=== PATIENT | female | born 1985 | race Caucasian/White ===

== ENCOUNTER 2018-05-07 12:19 | Emergency (ER) | payer BC, OTHER ==
[2018-05-07 12:36] VITALS: TEMP 98.7; BMI 23.5
[2018-05-07] MEDS ORDERED: SODIUM CHLORIDE 0.9% 500 ML INFUS.BAG IV ONE (14:01)
[2018-05-07 14:30] LABS: BASO % 0.7 % (0-2.0); EOS % 0.5 % (0-4.5); HEMOGLOBIN 12.5 GM/dL (10.7-15.3); LYMPH % 16.5 % (8-40); MCH 30.2 pg (25.7-33.7); MCHC 35.7 g/dl (32.0-36.0); MEAN CELL VOLUME 84.6 fl (80-96); MEAN PLT VOLUME 9.6 fl (7.5-11.1); MONO % 6.1 % (3.8-10.2); NEUT % 76.2 % (42.8-82.8); PLATELET COUNT 177 K/MM3 (134-434); RBC 4.13 M/mm3 (3.60-5.2); RDW 12.3 % (11.6-15.6); WHITE BLOOD COUNT 7.7 K/mm3 (4.0-10.0)
--- NOTE | 2018-05-07 14:41 | PDOC ---
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 Patient states she took a shower this morning when she suddenly felt lightheaded and like she was going to faint and sat down to the ground. Patient denies head/body trauma or loss of consciousness. Patient reports she has been eating less than usual secondary to her . Patient states she vomited approximately 4 times today, all nonbloody and nonbilious. Patient has been nauseous over the past 2 weeks for which she has been taking B6 and bruce root extract with minimal relief. Patient will be seeing Dr. Mahoney, RATE MANAGER, next week for an ultrasound. Patient is on prenatals. LMP 02/2018 Patient denies fever, chills, vaginal bleeding, back pain, cp, sob, or urinary symptoms. Allergies: NKDA Surgeries: None reported Social: No reported alcohol, drug or cigarette use. ROS General Medical GENERAL/CONSTITUTIONAL: No fever or chills. no sweats. (+) Weakness. HEAD, EYES, EARS, NOSE AND THROAT: No change in vision or hearing. No ear pain or discharge. No sore throat or mouth pain. No difficulty swallowing. No congestion. CARDIOVASCULAR: No chest pain or palpitations, syncope or edema. RESPIRATORY: No SOB, cough, wheezing, or hemoptysis. GASTROINTESTINAL (+) Nausea/vomiting. No diarrhea or constipation. No abdominal pain. GENITOURINARY: No hematuria, dysuria, frequency, urgency or other changes. No vaginal bleeding. MUSCULOSKELETAL: No joint or muscle swelling or pain. No neck or back pain. SKIN: No rash or changes in skin color or lesions. NEUROLOGIC: No headache, vertigo, loss of consciousness, or change in strength/ sensation. No gait instability. (+) Lightheadedness. HEMATOLOGIC/LYMPHATIC: No anemia, easy bruising/bleeding, or history of blood clots. ALLERGIC/IMMUNOLOGIC: No allergies All other systems reviewed and negative, or as documented in HPI. Physical exam (general medical) General: Well appearing, awake and alert, NAD. HEENT: NCAT, PERRL, EOMI, clear conjunctiva, anicteric, moist mucus membranes, clear oropharynx, no oral lesions.. Neck: neck supple, FROM Resp: CTAB, normal and even respirations, no respiratory distress CVS: RRR, no murmurs, 2+ peripheral pulses throughout, no peripheral edema Abdomen: soft, NTND, no peritoneal signs. No CVAT. Back: nontender, normal inspection and ROM MSK: no edema, AMARAL x4, ROM intact. No clubbing or cyanosis. normal bulk and tone. Extremities: no calf tenderness Neuro: alert Skin: warm and well perfused, cap refill <2 sec, normal color <Monse Baca - Last Filed: 05/07/18 15:19> - General History Source: Patient Exam Limitations: No Limitations <Carito Salgado - Last Filed: 05/09/18 16:39> - General Chief Complaint: Syncope/Near Syncope Stated Complaint: 8WKS Time Seen by Provider: 05/07/18 13:56 Past History <Monse Baca - Last Filed: 05/07/18 15:19> - Past Medical History COPD: No - Suicide/Smoking/Psychosocial Hx Smoking History: Never smoked <Carito Salgado - Last Filed: 05/09/18 16:39> - Past Medical History Allergies/Adverse Reactions: Allergies Allergy/AdvReac Type Severity Reaction Status Date / Time No Known Allergies Allergy Verified 05/07/18 12:33 Home Medications: Ambulatory Orders Aspirin [Aspirin EC] 81 mg PO DAILY 05/07/18 Metoclopramide HCl [Reglan -] 10 mg PO TID PRN #9 tablet 05/07/18 Vit 108/Iron/Folic AC [ One Tablet] 1 each PO DAILY 05/07/18 *Physical Exam - Vital Signs Last Vital Signs Temp Pulse Resp BP Pulse Ox 98.7 F 79 18 99/64 100 05/07/18 12:33 05/07/18 12:33 05/07/18 12:33 05/07/18 12:33 05/07/18 12:33 <Monse Baca - Last Filed: 05/07/18 15:19> - Vital Signs Last Vital Signs Temp Pulse Resp BP Pulse Ox 98.7 F 79 18 99/64 100 05/07/18 12:33 05/07/18 12:33 05/07/18 12:33 05/07/18 12:33 05/07/18 12:33 <Carito Salgado - Last Filed: 05/09/18 16:39> Moderate Sedation - Procedure Monitoring Vital Signs: Procedure Monitoring Vital Signs Temperature 98.7 F 05/07/18 12:33 Pulse Rate 79 05/07/18 12:33 Respiratory Rate 18 05/07/18 12:33 Blood Pressure 99/64 05/07/18 12:33 O2 Sat by Pulse Oximetry (%) 100 05/07/18 12:33 <Monse Baca - Last Filed: 05/07/18 15:19> - Procedure Monitoring Vital Signs: Procedure Monitoring Vital Signs Temperature 98.7 F 05/07/18 12:33 Pulse Rate 79 05/07/18 12:33 Respiratory Rate 18 05/07/18 12:33 Blood Pressure 99/64 05/07/18 12:33 O2 Sat by Pulse Oximetry (%) 100 05/07/18 12:33 <Carito Salgado - Last Filed: 05/09/18 16:39> Heart Score/ECG Review - ECG Impressions Normal ECG: Yes Comment:: 05/07/18 15:39 EKG normal sinus rhythm, no interval abnormalities, narrow QRS, ST and T wave segments and morphology normal. Nonspecific T wave abnormalities <Carito Salgado - Last Filed: 05/09/18 16:39> ED Treatment Course - LABORATORY CBC & Chemistry Diagram: 05/07/18 14:19 05/07/18 14:19 - ADDITIONAL ORDERS Additional order review: Laboratory Results 05/07/18 14:48 Urine Color Dkyellow Urine Appearance Clear Urine pH 5.0 Ur Specific [place] 1.027 Urine Protein 1+ H Urine Glucose (UA) Negative Urine Ketones 2+ H Urine Blood 1+ H Urine Nitrite Negative Urine Bilirubin Negative Urine Urobilinogen Negative Ur Leukocyte Esterase Trace 05/07/18 14:19 RBC 4.13 MCV 84.6 MCHC 35.7 RDW 12.3 MPV 9.6 Neutrophils % 76.2 Lymphocytes % 16.5 Monocytes % 6.1 Eosinophils % 0.5 Basophils % 0.7 - Medications Given in the ED: ED Medications Discontinued Medications Generic Name Dose Route Start Last Admin Trade Name Freq PRN Reason Stop Dose Admin Sodium Chloride 1,000 ml 05/07/18 14:01 05/07/18 14:26 Normal Saline - IV 05/07/18 14:02 1,000 ml ONCE ONE Administration <Monse Baca - Last Filed: 05/07/18 15:19> - LABORATORY CBC & Chemistry Diagram: 05/07/18 14:19 05/07/18 14:19 - ADDITIONAL ORDERS Additional order review: 05/07/18 14:19 RBC 4.13 MCV 84.6 MCHC 35.7 RDW 12.3 MPV 9.6 Neutrophils % 76.2 Lymphocytes % 16.5 Monocytes % 6.1 Eosinophils % 0.5 Basophils % 0.7 - Medications Given in the ED: ED Medications Discontinued Medications Generic Name Dose Route Start Last Admin Trade Name Freq PRN Reason Stop Dose Admin Sodium Chloride 1,000 ml 05/07/18 14:01 05/07/18 14:26 Normal Saline - IV 05/07/18 14:02 1,000 ml ONCE ONE Administration <Carito Salgado - Last Filed: 05/09/18 16:39> Medical Decision Making - Medical Decision Making 05/07/18 15:17 I, Carito Salgado MD, attest that this document has been prepared under my direction and personally reviewed by me in its entirety. I further attest, that it accurately reflects all work, treatment, procedures and medical decision -making performed by me. hpi as documented VS normal, at baseline status, no neuro deficits. no head trauma or LOC, no imaging indicated. ECG nonischemic, nonspecific T wave abnormalities. basic labs and lytes wnl. beta hcg >[id number] UA neg for infection, prelim. no bacteria, wbcs <10, f/u urine cx. defer tx for now. bedside pelvic US with live IUP, FHR 168-175 bpm, no pelvic FF noted. good FM noted. CRL 8 wk/1 day correlating with LMP/dates. called to Dr Mahoney service, no callback, left message with clinical update. outpatient followup. dispo: DC in stable condition with PCP/OB followup. return precautions discussed , including AP, bleeding, dehydration, lethargy, inability to collins PO. bleeding precautions. c/w prenatals. PRN reglan for n/v as bruce root/diclegis ineffective. 05/07/18 15:39 05/07/18 16:32 <Carito Salgado - Last Filed: 05/09/18 16:39> *DC/Admit/Observation/Transfer <Monse Baca - Last Filed: 05/07/18 15:19> - Discharge Dispostion Decision to Admit order: No <Carito Salgado - Last Filed: 05/09/18 16:39> Diagnosis at time of Disposition: Syncope, near, Nausea/vomiting in - Discharge Dispostion Disposition: HOME Condition at time of disposition: Improved - Prescriptions Prescriptions: Metoclopramide HCl [Reglan -] 10 mg PO TID PRN #9 tablet PRN Reason: Nausea - Referrals Referrals: Jocelin Ace MD [Primary Care Provider] - Aleyda Mahoney MD [Staff Physician] - - Patient Instructions Printed Discharge Instructions: DI for Syncope in Adults (Fainting), Diet, DI for Hyperemesis Gravidarum, DI for -- Discomforts and Remedies, DI for Nausea -- Adult, DI for Vomiting -- Adult Additional Instructions: your blood work was normal and EKG also normal. your urine preliminary does not show infection, follow up on urine culture to check for infection. your bedside ultrasound showed a live intrauterine with good motion may take reglan every 8 hours as needed for nausea/vomiting in . stay well hydrated and rest well. light crackers/juice with meals, important to stay hydrated and eat Follow up with your physician and consultants as instructed, take your medications as instructed including reglan as discussed and vitamins follow up with Dr Mahoney - your doctor was called notified. Return if worsening symptoms including Vaginal bleeding, fevers, headache, vomiting, visual or hearing disturbances, abdominal pain, chest pain, shortness of breath, syncope, dehydration, inability to take things by mouth/vomiting, altered mental status, or worsening concerning symptoms. - Post Discharge Activity
[2018-05-07 15:15] LABS: URINE APPEARANCE CLEAR; URINE BILIRUBIN NEGATIVE (<2.0 mg/dL); URINE COLOR DKYELLOW; URINE GLUCOSE (UA) NEGATIVE (NEGATIVE); URINE KETONE 2+ (NEGATIVE); URINE LEUK ESTERASE TRACE (NEGATIVE); URINE NITRITE NEGATIVE (NEGATIVE); URINE PROTEIN 1+ (NEGATIVE); URINE UROBILINOGEN NEGATIVE mg/dL (0.2-1.0)
[2018-05-07] MEDS ORDERED: METOCLOPRAMIDE HCL INJECTION 10 MG/2 ML VIAL IVPUSH ONE (15:34)
[2018-05-07 15:51] LABS: CALCIUM OXALATE CRYSTALS RARE /hpf (NONE SEEN); EPI CELLS RARE /HPF (FEW); URINE HYALINE CAST 4 /lpf; URINE MUCUS MANY
[2018-05-07 15:54] LABS: ALBUMIN 3.9 g/dl (3.4-5.0); ALK PHOS 29 U/L (45-117); ANION GAP 9 MMOL/L (8-16); BILIRUBIN,TOTAL 0.6 mg/dL (0.2-1); BLOOD UREA NITROGEN 12 mg/dL (7-18); CALCIUM 8.9 mg/dL (8.5-10.1); CHLORIDE 103 mmol/L (98-107); CO2 24 mmol/L (21-32); CREATININE 0.6 mg/dL (0.55-1.3); GLUCOSE,RANDOM 87 mg/dL (74-106); POTASSIUM 4.2 mmol/L (3.5-5.1); SGOT/AST 12 U/L (15-37); SGPT/ALT 16 U/L (13-61); SODIUM 136 mmol/L (136-145); TOT PROT 7.1 g/dl (6.4-8.2)
[2018-05-07] MEDS ORDERED: METOCLOPRAMIDE HCL INJECTION 10 MG/2 ML VIAL ONE (15:58)
[2018-05-07 16:34] VITALS: BP 106/65; PULSE 84
--- NOTE | 2018-05-08 19:13 | EKG ---
Test Reason : Blood Pressure : / mmHG Vent. Rate : 067 BPM Atrial Rate : 067 BPM P-R Int : 176 ms QRS Dur : 084 ms QT Int : 384 ms P-R-T Axes : 042 071 040 degrees QTc Int : 405 ms NORMAL SINUS RHYTHM NORMAL ECG NO PREVIOUS ECGS AVAILABLE Confirmed by AMBERLY SENIOR, ROSA ([id number]) on 05/08/2018 7:13:43 PM Referred By: Confirmed By:ROSA GAMING MD
== END 2018-05-07 16:35 | disposition home or self-care (01) ==
LOC: JER 12:19
PROC: 3E033GC Introduction of Other Therapeutic Substance into Peripheral Vein, Percutaneous Approach (ICD-10-PCS; principal; 2018-05-07)
DX: O26.891 Other specified pregnancy related conditions, first trimester (principal); O21.0 Mild hyperemesis gravidarum; R55 Syncope and collapse; O99.111 Other diseases of the blood and blood-forming organs and certain disorders involving the immune mechanism complicating pregnancy, first trimester; D68.2 Hereditary deficiency of other clotting factors; Z3A.08 8 weeks gestation of pregnancy
CPT/HCPCS: 36415; 80053; 81003; 81015; 84702; 85025; 87086; 93005; 93010; 99285-25

== ENCOUNTER 2018-12-16 08:40 | Inpatient (IN) | payer OTHER | END 2018-12-19 12:30 | disposition home or self-care (01) | LOC: JLDR 08:40 → J3W 12-17 10:51 ==

== ENCOUNTER 2022-05-14 19:50 | Inpatient (IN) | payer OTHER ==
[2022-05-14 21:17] VITALS: BMI 26.1
[2022-05-14 21:44] LABS: BASO % 0.2 % (0-2.0); EOS % 0.6 % (0-4.5); HEMATOCRIT 28.2 % (32.4-45.2); HEMOGLOBIN 9.4 GM/dL (10.7-15.3); LYMPH % 18.2 % (8-40); MCHC 33.4 g/dl (32.0-36.0); MEAN CELL VOLUME 83.8 fl (80-96); MEAN PLT VOLUME 9.3 fl (7.5-11.1); MONO % 6.8 % (3.8-10.2); NEUT % 74.2 % (42.8-82.8); PLATELET COUNT 167 10^3/uL (134-434); RBC 3.37 M/mm3 (3.60-5.2); RDW 13.7 % (11.6-15.6); WHITE BLOOD COUNT 8.3 K/mm3 (4.0-10.0)
[2022-05-14 21:53] LABS: PROTHROMBIN TIME (PATIENT) 11.5 SEC (9.7-13.0)
[2022-05-14 21:56] LABS: ACTIVATED PTT 24.1 SECONDS (25.2-36.5)
[2022-05-14 22:03] LABS: CALCIUM 9.3 mg/dL (8.5-10.1)
[2022-05-14 22:04] LABS: BLOOD UREA NITROGEN 8.3 mg/dL (7-18)
[2022-05-14 22:07] LABS: CREATININE 0.6 mg/dL (0.55-1.3)
[2022-05-14] MEDS ORDERED: ELECTROLYTE-148 SOLN 1,000 ML IV SCH (22:15)
[2022-05-14] MEDS ORDERED: FENTANYL/BUPIVACAINE/NS/PF - PCEA - 50 ML DISP.SYRIN EP ONE (22:42)
[2022-05-14] MEDS ORDERED: NALOXONE HCL 0.4 MG/ML VIAL IVPUSH PRN (22:57)
[2022-05-14] MEDS ORDERED: BUPIVACAINE HCL/PF 0.25% (2.5MG/ML) 10 ML VIAL ONE (22:58)
[2022-05-14] MEDS: FENTANYL/BUPIVACAINE/NS/PF - PCEA - 50 ML DISP.SYRIN EP SCH (23:15)
[2022-05-15] MEDS ORDERED: FENTANYL/BUPIVACAINE/NS/PF - PCEA - 50 ML DISP.SYRIN EP ONE (02:47)
[2022-05-15] MEDS: FENTANYL/BUPIVACAINE/NS/PF - PCEA - 50 ML DISP.SYRIN EP SCH (02:48)
[2022-05-15] MEDS ORDERED: OXYTOCIN 20 UNITS in 0.9% NS 20 UNIT/1,000 ML INFUS.BAG IV ONE ×2 (03:58→07:57)
[2022-05-15] MEDS ORDERED: CITRIC ACID/SODIUM CITRATE 30 ML UNIT-DOSE CUP PO ONE (05:13)
[2022-05-15] MEDS ORDERED: BUPIVACAINE HCL/PF 0.5% (5MG/ML) 10 ML VIAL ONE (05:18)
[2022-05-15] MEDS ORDERED: morphine SULFATE (PF) 1 MG/2 ML SYRINGE ONE (05:36)
[2022-05-15] MEDS ORDERED: ceFAZolin SODIUM 1 GM VIAL ONE (05:37)
[2022-05-15] MEDS ORDERED: OXYTOCIN 10 UNITS/ML VIAL ONE ×2 (05:58→06:24)
[2022-05-15] MEDS ORDERED: PHENYLEPHRINE HCL 10 MG/1 ML SINGLE DOSE VIAL ONE (05:58)
[2022-05-15 06:32] LABS: ARTERIAL BLOOD GAS BASE EXCESS -1.8 mmol/L (-2-2)
[2022-05-15 06:35] LABS: VENOUS BASE EXCESS -2.2 mmol/L (-2-2); VENOUS O2 SATURATION 40.6 % (70-80); VENOUS PCO2 48.1 mmHg (38-52); VENOUS PH 7.322 (7.310-7.410)
[2022-05-15] MEDS ORDERED: morphine SULFATE/PF 1 MG/2 ML (2cc Syringe - QUVA) EP ONE (06:44)
[2022-05-15] MEDS ORDERED: KETOROLAC TROMETHAMINE 30 MG/1 ML VIAL ONE (06:53)
[2022-05-15] MEDS ORDERED: SENNOSIDES/DOCUSATE COMBO (SENNA PLUS) TABLET (UD) PO PRN (06:56)
[2022-05-15] MEDS ORDERED: METHYLERGONOVINE MALEATE 0.2 MG/1 ML AMP IM PRN (06:56)
[2022-05-15] MEDS ORDERED: IBUPROFEN 800 MG/8 ML IJ IVPB PRN (07:19)
[2022-05-15] MEDS: OXYTOCIN 20 UNITS in 0.9% NS 20 UNIT/1,000 ML INFUS.BAG IV SCH ×2 (08:10→16:36)
[2022-05-15] MEDS: ONDANSETRON 4 MG/2 ML VIAL IVPUSH PRN ×2 (10:15→16:35)
[2022-05-15] MEDS ORDERED: oxyCODONE HCL 5 MG TABLET PO PRN ×2 (18:56)
[2022-05-16] MEDS ORDERED: BISACODYL 10 MG SUPP.RECT RC PRN (06:56)
[2022-05-16] MEDS ORDERED: ACETAMINOPHEN 325 MG TABLET (FP) PO PRN (07:00)
[2022-05-16 07:38] LABS: BASO % 0.3 % (0-2.0); EOS % 0.3 % (0-4.5); HEMATOCRIT 25.1 % (32.4-45.2); HEMOGLOBIN 8.2 GM/dL (10.7-15.3); LYMPH % 15.2 % (8-40); MCH 28.3 pg (25.7-33.7); MCHC 32.8 g/dl (32.0-36.0); MEAN CELL VOLUME 86.2 fl (80-96); MEAN PLT VOLUME 9.4 fl (7.5-11.1); MONO % 6.5 % (3.8-10.2); NEUT % 77.7 % (42.8-82.8); PLATELET COUNT 151 10^3/uL (134-434); RBC 2.91 M/mm3 (3.60-5.2); RDW 13.9 % (11.6-15.6); WHITE BLOOD COUNT 8.6 K/mm3 (4.0-10.0)
[2022-05-16] MEDS: IBUPROFEN 600 MG TABLET (FP) PO PRN ×2 (09:38→17:14)
[2022-05-16] MEDS: ENOXAPARIN NA (PORCINE) 40 MG/0.4 ML DISP.SYRIN SQ SCH (09:38)
[2022-05-16] MEDS: FENTANYL/BUPIVACAINE/NS/PF - PCEA - 50 ML DISP.SYRIN EP SCH (19:55)
[2022-05-17] MEDS: IBUPROFEN 600 MG TABLET (FP) PO PRN ×2 (06:12→16:26)
[2022-05-17] MEDS: SIMETHICONE 80 MG TAB.CHEW (FP) PO PRN ×2 (06:13→16:27)
[2022-05-17] MEDS: ENOXAPARIN NA (PORCINE) 40 MG/0.4 ML DISP.SYRIN SQ SCH (09:56)
[2022-05-17 21:12] VITALS: RESP 18
[2022-05-18] MEDS: IBUPROFEN 600 MG TABLET (FP) PO PRN (06:31)
[2022-05-18 09:24] LABS: BASO % 0.4 % (0-2.0); EOS % 1.2 % (0-4.5); HEMATOCRIT 27.4 % (32.4-45.2); HEMOGLOBIN 8.9 GM/dL (10.7-15.3); LYMPH % 20.2 % (8-40); MCH 27.8 pg (25.7-33.7); MCHC 32.6 g/dl (32.0-36.0); MEAN CELL VOLUME 85.4 fl (80-96); MEAN PLT VOLUME 8.9 fl (7.5-11.1); NEUT % 73.2 % (42.8-82.8); PLATELET COUNT 187 10^3/uL (134-434); RBC 3.21 M/mm3 (3.60-5.2); RDW 13.9 % (11.6-15.6); WHITE BLOOD COUNT 5.7 K/mm3 (4.0-10.0)
[2022-05-18] MEDS: ENOXAPARIN NA (PORCINE) 40 MG/0.4 ML DISP.SYRIN SQ SCH (09:33)
[2022-05-18 09:47] VITALS: BP 117/63; PULSE 81; TEMP 98
== END 2022-05-18 12:15 | disposition home or self-care (01) | DRG 788 ==
LOC: JLDR 19:50 → J3W 05-15 08:15
PROVIDERS: ADMIT Obstetrics & Gynecology; ATTEND Obstetrics & Gynecology
PROC: 10D00Z1 Extraction of Products of Conception, Low, Open Approach (ICD-10-PCS; principal; 2022-05-15)
DX: O62.1 Secondary uterine inertia (principal); O36.63X0 Maternal care for excessive fetal growth, third trimester, not applicable or unspecified; O90.81 Anemia of the puerperium; D64.9 Anemia, unspecified; Z86.2 Personal history of diseases of the blood and blood-forming organs and certain disorders involving the immune mechanism; Z3A.40 40 weeks gestation of pregnancy; Z37.0 Single live birth
CPT/HCPCS: 36415; 36600; 80048; 82803; 85025; 85610; 85730; 86780; 86850; 86900; 86901; 88307-TC; C9803-CS; U0003; U0005